=== PATIENT | female | born 1965 | race Caucasian/White ===

== ENCOUNTER 2022-03-16 08:06 | Outpatient (CLI) | payer BC | END 2022-03-16 08:07 | disposition home or self-care (01) | LOC: TBSIIMAG 08:06 | PROVIDERS: ATTEND Orthopaedic Surgery Sports Medicine | DX: M47.812 Spondylosis without myelopathy or radiculopathy, cervical region (principal); M50.322 Other cervical disc degeneration at C5-C6 level | CPT/HCPCS: 72141 ==